=== PATIENT | male | born 1960 | race Caucasian/White ===

== ENCOUNTER 2017-05-10 16:22 | Emergency (ER) | payer MEDICARE, MEDICAID ==
[~2017-05-10] VITALS: Ht 154.9 cm; Wt 65.8 kg
[~2017-05-10 16:22] MED LIST: ALLOPURINOL300 MG PO; AMLODIPINE BESYL5 MG PO; ASTAGRAF PO; IMODIUM2 MG ORAL; LEFLUNOMIDE20 MG PO; LORAZEPAM2 MG PO; LYRICA25 MG PO; LYRICA75 M1 ORAL; METOPROLOL TART25 MG PO; NORCO 10/3251 EA ORAL; PERCOCET 5-3251 EACH PO; PREDNISONE20 M1 PO; RENAGEL400 MG PO; SIMVASTATIN80 MG PO; TRAMADOL HCL50 MG PO
[2017-05-10] MEDS ORDERED: Morphine Sulfate 4mg/ml Inj IM ONE (17:15)
[2017-05-10 17:46] VITALS: BP 146/88
[2017-05-10] MEDS ORDERED: NORCO 5-325 TA1 EAC1 ORAL (18:06)
[2017-05-10 18:45] VITALS: BP 143/86
--- NOTE | 2017-05-10 20:09 | Emergency Room Report ---
History of Present Illness General Chief Complaint: Pain Source: Patient Present Illness HPI The patient is a 56-year-old male presenting for elbow pain and back pain. He states that he hit his left elbow on a table yesterday and has noticed swelling to the area. Pain is a 9/10 dull ache it is worse with movement. He denies previous elbow injury. Is also complaining of worsening lower back pain. He states he has had chronic lower back pain for many years and usually takes tramadol 3 times a day but it has been gradually increasing. This pain is also a 9/10 dull ache. He denies radiating pain. Worse with movement. He denies any numbness or tingling. He denies any other symptoms Allergies: Coded Allergies: DIPHENHYDRAMINE (Verified Allergy, Mild, 02/01/09) ACETAMINOPHEN (Verified Allergy, Unknown, 06/22/15) Hallucinations Patient History Past Medical History: see triage record Pertinent Family History: none Reviewed Nursing Documentation: PMH: Agreed, PSxH: Agreed Nursing Documentation-PMH Hx Cardiac Problems: Yes Hx Hypertension: Yes Hx Pacemaker: No Hx Asthma: No Hx COPD: No Hx Diabetes: No Hx Cancer: No Hx Dialysis: Yes - pt had kidney transplant Hx Neurological Problems: No - Back surgery 1993 Hx Cerebrovascular Accident: No Hx Seizures: No Review of Systems All Other Systems: negative except mentioned in HPI Physical Exam Vital Signs Date Time Temp Pulse Resp B/P (MAP) Pulse Ox O2 Delivery O2 Flow Rate FiO2 05/10/17 16:37 98.2 66 20 146/88 99 Room Air Sp02 EP Interpretation: reviewed, normal General Appearance: no apparent distress, alert, GCS 15, non-toxic Head: normocephalic, atraumatic Eyes: bilateral eye normal inspection, bilateral eye PERRL ENT: hearing grossly normal, normal pharynx, no angioedema, normal voice Neck: full range of motion, supple/symm/no masses Respiratory: chest non-tender, lungs clear, normal breath sounds, speaking full sentences Cardiovascular #1: regular rate, rhythm, no edema Musculoskeletal: back normal, gait/station normal, normal range of motion, swelling - L elbow, tender - TTP over the L medial elbow Neurologic: alert, oriented x3, responsive, motor strength/tone normal, sensory intact, speech normal Psychiatric: judgement/insight normal, memory normal, mood/affect normal, no suicidal/homicidal ideation Skin: no rash, warm/dry, well hydrated, other - echymosis over L elbow Lymphatic: no adenopathy Procedures Splinting Splinting : Consent: Verbal Location: L arm Pre-Made Type: sling Pre-Proc Neuro Vasc Exam: normal Post-Proc Neuro Vasc Exam: normal Patient Tolerated: Well Complications: None Medical Decision Making PA Attestation Dr. Alex is my supervising physician. Patient management was discussed with my supervising physician Diagnostic Impression: Primary Impression: Contusion of elbow, left Qualified Codes: S50.02XA - Contusion of left elbow, initial encounter Additional Impression: Back pain, chronic Qualified Codes: M54.5 - Low back pain; G89.29 - Other chronic pain ER Course The patient is a 56-year-old male presenting for elbow pain and back pain. Ddx considered include but not limited to sprain/strain, fracture, contusion, DVT, cellulitis, among others PE: NAD L Elbow: There is tenderness to palpation over the medial aspect with swelling and ecchymosis. Full active range of motion is intact. Radial pulse 2+ bilat. Back: midline surgical scar. Normal gait. SILT. No step-offs. Left elbow x-ray shows no acute findings. Patient be discharged home with a prescription for pain medication and will followup with his primary doctor. ER precautions are given Other X-Ray Diagnostic Results Other X-Ray Diagnostic Results : X-Ray ordered: L eblow # of Views/Limited Vs Complete: 3 View Indication: Pain EP Interpretation: Yes PA Xray: Interpretation reviewed, by supervising MD, and agrees with findings. Interpretation: no dislocation, no fractures Impression: No acute disease Electronically Signed by: Jr Ceja PA-C Last Vital Signs Date Time Temp Pulse Resp B/P (MAP) Pulse Ox O2 Delivery O2 Flow Rate FiO2 05/10/17 18:45 98.2 78 18 143/86 99 Room Air Status: improved Disposition: HOME, SELF-CARE Condition: Improved Scripts Hydrocodone Bit/Acetaminophen 5-325* (NORCO 5-325 TABLET*) 1 Each Tablet 1 TAB ORAL Q6HR Y for For Pain, #10 TAB Prov: JR CEJA 05/10/17 Patient Instructions: Elbow Contusion, Back Pain, Adult Additional Instructions: I discussed my findings with the patient. All questions and concerns have been answered. Treatment and medication compliance have been addressed. I advised the patient that they need to follow up with PMD in 3-5 days. Return to ED if pain remains or worsens, numbness or tingling occurs, new rash is noticed, fever is noticed, or if needed for any reason. Patient verbalized understanding of discharge instructions. JR CEJA May 10, 2017 20:09
--- NOTE | 2017-05-11 08:32 | Diagnostic Imaging Report ---
Indications:PAIN Technique: Three or 4 views of the left elbow Comparison: None Findings:Extensive surgical clips are seen about the elbow. No definite effusion, fracture, dislocation, or joint space narrowing. A venous stent is seen in the upper arm, presumably related to a dialysis fistula Impression:No acute bony trauma
== END 2017-05-10 18:47 | disposition home or self-care (01) ==
LOC: EMR 17:46
DX: S50.02XA Contusion of left elbow, initial encounter (principal); W22.03XA Walked into furniture, initial encounter; Y92.89 Other specified places as the place of occurrence of the external cause; M54.9 Dorsalgia, unspecified; G89.29 Other chronic pain; Z88.6 Allergy status to analgesic agent; I10 Essential (primary) hypertension
CPT/HCPCS: 73080; 96372; 99284; J2270

== ENCOUNTER 2018-09-12 20:55 | Emergency (ER) | payer MEDICAID, MEDICARE, OTHER ==
[~2018-09-12] VITALS: Ht 154.9 cm; Wt 65.8 kg
[~2018-09-12 20:55] MED LIST changes: +NORCO 5-325 TA1 EAC1 ORAL
[2018-09-12] MEDS ORDERED: PLAVIX75 MG ORAL (21:11)
--- NOTE | 2018-09-12 21:16 | NUR ---
ED Nurse Note: pt walked in c/o cough and headache x 1 week.pt he has kidney transplant and was afraid if he has infection. Pt is AO x 4times, VSS, on room air no distress. ERMD seen Pt at bedside.
[2018-09-12 21:29] VITALS: BP 132/78
[2018-09-12] MEDS ORDERED: AUGMENTIN 875-1 EAC1 ORAL (21:31)
[2018-09-12] MEDS ORDERED: ALBUTEROL SULF8.5 GM INH (21:31)
--- NOTE | 2018-09-12 21:31 | Emergency Room Report ---
History of Present Illness General Chief Complaint: Upper Respiratory Illness Source: Patient Present Illness HPI This is a 58-year-old male with a history of high blood pressure and diabetes. He also has a history of kidney transplant in 2012. He presents with chief complaint of cough and congestion. Onset for a week. Coughing is productive of sputum. He said his phlegm to dark color. Subjective fever chills last night. No nausea no vomiting. Worse with inspiration. Worse with walking. No relief with [id number] medication. Allergies: Coded Allergies: DIPHENHYDRAMINE (Verified Allergy, Mild, 02/01/09) ACETAMINOPHEN (Verified Allergy, Unknown, 06/22/15) Hallucinations Patient History Past Medical History: see triage record, old chart reviewed, HTN Past Surgical History: other Pertinent Family History: none Social History: Denies: smoking Immunizations: other Reviewed Nursing Documentation: PMH: Agreed; PSxH: Agreed Nursing Documentation-PMH Hx Cardiac Problems: Yes Hx Hypertension: Yes Hx Pacemaker: No Hx Asthma: No Hx COPD: No Hx Diabetes: No Hx Cancer: No Hx Dialysis: Yes - pt had kidney transplant Hx Neurological Problems: No - Back surgery 1993 Hx Cerebrovascular Accident: No Hx Seizures: No Review of Systems Eye: Denies: eye pain, blurred vision ENT: Reports: nose congestion; Denies: ear pain, throat swelling Respiratory: Reports: cough, shortness of breath Cardiovascular: Denies: chest pain, palpitations Gastrointestinal: Denies: abdominal pain, diarrhea, nausea, vomiting Musculoskeletal: Denies: back pain, joint pain Skin: Denies: rash Neurological: Denies: headache, numbness Endocrine: Denies: increased thirst, increased urine Hematologic/Lymphatic: Denies: easy bruising All Other Systems: negative except mentioned in HPI Physical Exam Vital Signs Date Time Temp Pulse Resp B/P (MAP) Pulse Ox O2 Delivery O2 Flow Rate FiO2 09/12/18 21:06 98.2 64 16 129/78 96 Room Air vitals normal Sp02 EP Interpretation: reviewed, normal General Appearance: well appearing, no apparent distress, alert Head: normocephalic, atraumatic Eyes: bilateral eye PERRL, bilateral eye EOMI ENT: hearing grossly normal, normal pharynx Neck: full range of motion, supple, no meningismus Respiratory: chest non-tender, lungs clear, normal breath sounds, other - Coughing with inspiration Cardiovascular #1: regular rate, rhythm, no murmur Gastrointestinal: normal bowel sounds, non tender, no mass, no organomegaly, no bruit, non-distended Musculoskeletal: back normal, gait/station normal, normal range of motion Psychiatric: mood/affect normal Skin: warm/dry Medical Decision Making Diagnostic Impression: Primary Impression: Upper respiratory infection Qualified Codes: J06.9 - Acute upper respiratory infection, unspecified ER Course Patient with upper respiratory infection. Because he is a transplant patient, under suppressive medication, which her with antibiotics. May be atypical pneumonia. No evidence of any sepsis, ACS, PE, dissection to name a few. Last Vital Signs Date Time Temp Pulse Resp B/P (MAP) Pulse Ox O2 Delivery O2 Flow Rate FiO2 09/12/18 21:06 98.2 64 16 129/78 96 Room Air Status: improved Disposition: HOME, SELF-CARE Condition: Stable Scripts Amoxicillin/Potassium Clav 875-125* (AUGMENTIN 875-125 TABLET*) 1 Each Tablet 1 TAB ORAL TWICE A DAY, #14 TAB Prov: Gabino Breen MD 09/12/18 Albuterol Sulfate* (ALBUTEROL SULFATE MDI*) 8.5 Gm Hfa.aer.ad 2 PUFF INH Q4H PRN for cough/wheezing, #1 EA 0 Refills Prov: Gabino Breen MD 09/12/18 Patient Instructions: Upper Respiratory Infection, Adult Additional Instructions: Follow-up with your doctor in 7 days. Return if symptom worsen. Gabino Breen MD Sep 12, 2018 21:31
[2018-09-12] MEDS ORDERED: HYDROcodone/Acetamin 5/325 tab ORAL ONE (21:45)
[2018-09-12 21:52] VITALS: BP 132/78
--- NOTE | 2018-09-12 21:53 | NUR ---
ER DISCHARGE NOTE: Patient is cleared to be discharged per ERMD, pt is aox4, on room air, with stable vital signs. pt was given dc and prescription instructions, pt was able to verbalize understanding, pt id band removed without complications. pt is able to ambulate with steady gait with . pt took all belongings.
== END 2018-09-12 21:54 | disposition home or self-care (01) ==
LOC: EMR 21:25
DX: J06.9 Acute upper respiratory infection, unspecified (principal); I10 Essential (primary) hypertension; Z88.8 Allergy status to other drugs, medicaments and biological substances; Z88.6 Allergy status to analgesic agent; Z94.0 Kidney transplant status
CPT/HCPCS: 99282